=== PATIENT | male | born 1955 | race Caucasian/White ===

== ENCOUNTER 2022-09-11 19:20 | Emergency (ER) | payer MEDICARE, OTHER ==
[~2022-09-11] VITALS: Ht 180.3 cm; Wt 77.1 kg
== END 2022-09-11 23:49 | disposition home or self-care (01) ==
LOC: FSED 19:33
DX: S22.41XA Multiple fractures of ribs, right side, initial encounter for closed fracture (principal); S40.011A Contusion of right shoulder, initial encounter; W01.0XXA Fall on same level from slipping, tripping and stumbling without subsequent striking against object, initial encounter; Y93.02 Activity, running; Y92.89 Other specified places as the place of occurrence of the external cause; E78.5 Hyperlipidemia, unspecified; G25.0 Essential tremor
CPT/HCPCS: 99283